=== PATIENT | female | born 1990 | race Hispanic/Latino ===

== ENCOUNTER 2019-06-03 09:38 | Inpatient (IN) | payer BC ==
[2019-06-03] MEDS ORDERED: Ringers Lactate 1,000 ML IV PRN (09:54)
[2019-06-03] MEDS ORDERED: PROMETHAZINE 25 MG/ML VIAL IV PRN (09:54)
[2019-06-03] MEDS ORDERED: BUTORPHANOL 1 MG/ML INJ IV PRN (09:54)
[2019-06-03] MEDS ORDERED: FENTANYL CITR 100 MCG/2 ML IV ONE (09:59)
[2019-06-03] MEDS ORDERED: Ringers Lactate 1,000 ML IV SCH (10:00)
[2019-06-03] MEDS ORDERED: ROPIVACAINE HCL 100 ML IV PRN (10:03)
[2019-06-03] MEDS ORDERED: ROPIVACAINE HCL 0.2% 20ML AMP IV ONE (11:00)
[2019-06-03] MEDS ORDERED: PENICILLIN G POT 5 MU/100 ML VIAL IV SCH (11:00)
[2019-06-03 11:02] LABS: Urine Appearance CLOUDY; Urine Bilirubin NEGATIVE (NEG); Urine Blood 3+ (NEG); Urine Color YELLOW; Urine Glucose NEGATIVE (NEG); Urine Protein NEGATIVE (NEG); Urine Specific Gravity 1.015 (1.005-1.030)
[2019-06-03 11:04] LABS: Absolute Lymphocytes (CBC) 1.7 K/uL (0.7-4.9); Basophils % 0.3 % (0-1.3); Hematocrit 38.4 % (36.0-45.0); Lymphocytes % 19.3 % (15.3-44.8); MPV 11.2 fL (7.6-11.3); RBC Red Blood Cell Count 3.98 M/uL (3.86-4.86)
[2019-06-03 11:08] VITALS: BMI 27.1
[2019-06-03 11:12] LABS: Urine Microscopic Reflex ORDER UMIC
[2019-06-03 11:25] LABS: Urine Bacteria 20-50 /HPF (<20); Urine Culture Reflex Order REFLEXED; Urine Mucus 1+ /HPF (NONE SEEN)
[2019-06-03] MEDS ORDERED: PENICILLIN 2.5 MU in NA CHLORIDE 0.9% 100 ML IV SCH (13:00)
[2019-06-03] MEDS ORDERED: OXYTOCIN/LR 20 UNIT/1,000 ML BAG IV SCH ×3 (14:15→17:00)
[2019-06-03] MEDS ORDERED: ACETAMINOPHEN 500 MG TAB PO PRN (15:53)
[2019-06-03] MEDS ORDERED: IBUPROFEN 200 MG TAB PO PRN (15:53)
[2019-06-03] MEDS ORDERED: METHYLERGONOVINE 0.2MG/ML AMP IM PRN (15:53)
[2019-06-03] MEDS ORDERED: CARBOPROST TROME 250 MCG/ML IM PRN (15:53)
[2019-06-03] MEDS ORDERED: METHYLERGONOVINE 0.2 MG TAB PO PRN (15:53)
--- NOTE | 2019-06-03 15:56 | P.BOP ---
Preoperative diagnosis: 38+ wk , labor Postoperative diagnosis: same, delivered Primary procedure: SCVD viable male infant Secondary procedure: repair, left 1 degree periurethral laceration Estimated blood loss: less than 200ml Anesthesia: epidural Complications: None Transferred to: Other (274) Condition: Good
--- NOTE | 2019-06-03 16:47 | PREOPHP ---
Date of Admission: 06/03/2019 History Of Present Illness: Ms. Breen is a 28-year-old female, 2, para 1-0-0-1, fo llowed by Dr. Perales during this without apparent complications other than anemia. She is n ow at approximately 38+ weeks gestation. She is admitted with complaints of contractions, noted to b e 5 cm dilated, vertex presentation with membranes intact. She started erich last night and th ey got harder through the evening. Past Medical History: Please see record. Family History: Please see record. Review of Systems: She has had some recent allergy issues and was treated for sinusitis with amoxicillin. She denies re cent vomiting, although she is a little nauseated with her labor. She denies any breast lumps. Infa nt has been active. She denies any urine problems or bowel issues. Physical Examination: General: A pleasant female, in mild to moderate discomfort. Neck: Supple without adenopathy or thyromegaly. Lungs: Clear. Cardiac: Regular rate and rhythm without murmurs. Breasts not examined. Abdomen: Estimated weight of 7+ pounds. Pelvic: Cervix noted to be 5 cm dilated, 90% effaced, vertex at a -1 to 0 station. Extremities: Trace lower extremity edema. Impression: A 38+ week , active labor. Plan: Patient is beta strep positive and is receiving penicillin currently. We will delay rupture o f membranes and attempt to get second dosing prior to delivery. We will dose with Stadol and Phenergan x1 and hopefully we can have an epidural placed if she does not go too rapidly. JON/WILLIAMS Voice ID: [id number]
[2019-06-04 17:10] VITALS: BP 121/80; TEMP 98.1
[2019-06-04 21:04] LABS: RPR (Rapid Plasma Reagin) NON-REACT (NON-REACT)
--- NOTE | 2019-06-05 08:54 | DN ---
Surgeon: Theo Contreras MD Ms. Breen is a 28-year-old female, 2, para 1-0-0-1, at 38 weeks' gestation, admitte d in labor. She received 2 doses of penicillin for beta strep prophylaxis and 1 dose of Stadol 1 mg, Phenergan 12.5 mg for analgesia prior to placement of epidural catheter. She had a first stage of l abor of 6 hours, second stage of labor of 11 minutes. She delivered by spontaneous controlled vagina l delivery with a first degree left periurethral laceration, a 7 pound 11 ounce male . After d elay in cord clamping, placed on mother's upper abdomen. Cord blood was obtained. The placen ta was spontaneously expelled and appeared to be intact. Left periurethral laceration was repaired w ith 3 simple sutures of 3-0 Vicryl. The patient tolerated all procedures well. Estimated total bloo d loss was less than 200 cc. JON/WILLIAMS Voice ID: [id number] Report ID: [id number]
--- NOTE | 2019-06-05 08:54 | DS ---
Date of Discharge: 06/04/2019 Final Hospital Discharge Diagnosis: 38 week delivered, positive beta strep carriage. Complications: None. Procedures: 1.Penicillin prophylaxis. 2.Placement of epidural catheter. 3.Artificial rupture of membranes. 4.Pitocin augmentation of labor. 5.Spontaneous-controlled vaginal delivery of viable male . 6.Repair of first-degree left periurethral laceration. Hospital Course: Patient is a 28-year-old female, 2, para 1-0-0-1, at 38+ weeks [facility], admitted in active labor and noted to be 5 cm dilated. After penicillin prophylaxis, ruptur e of membranes was performed. She delivered a 7 pound 11 ounce male infant, was dismissed on her fir st day, ambulatory, on a select diet with routine post vaginal delivery activity restricti ons, to be seen back by Dr. Perales. She was to continue taking her vitamins with the usual p ost vaginal delivery activity restrictions. She had admission hemoglobin and hematocrit of 13.5 and 38.4, dismissal hematocrit of 38.0. She has Rh positive blood type and rubella immune. JON/WILLIAMS Voice ID: [id number] Report ID: [id number]
[2019-06-06 03:06] LABS: HBsAG Nonreactive (Nonreactive)
== END 2019-06-04 18:20 | disposition home or self-care (01) | DRG 807 ==
LOC: L&D 09:38 → 2ND-WC 09:58
PROVIDERS: ADMIT Specialist; ATTEND Specialist
PROC: 10907ZC Drainage of Amniotic Fluid, Therapeutic from Products of Conception, Via Natural or Artificial Opening (ICD-10-PCS; principal; 2019-06-03)
PROC: 10E0XZZ Delivery of Products of Conception, External Approach (ICD-10-PCS; 2019-06-03)
PROC: 0HQ9XZZ Repair Perineum Skin, External Approach (ICD-10-PCS; 2019-06-03)
DX: O71.82 Other specified trauma to perineum and vulva (principal); Z37.0 Single live birth; O99.824 Streptococcus B carrier state complicating childbirth; Z3A.38 38 weeks gestation of pregnancy
CPT/HCPCS: 36415; 81003; 81015; 85014; 85025; 86592; 86901; 87086; 87088; 87340; J0595; J2550; J2590; J2795; J7120